=== PATIENT | male | born 1980 | race African-American/Black ===

== ENCOUNTER 2023-10-12 23:53 | Inpatient (IN) | payer OTHER ==
[2023-10-13 00:56] VITALS: BMI 29.6
[2023-10-13] MEDS ORDERED: guaiFENesin 600 MG TABLET.ER (FP) PO PRN (01:15)
[2023-10-13] MEDS ORDERED: ONDANSETRON *ODT* 4 MG TABLET SL PRN (01:15)
[2023-10-13] MEDS ORDERED: BISMUTH SUBSALICYLATE 524 MG/30 ML PO PRN (01:15)
[2023-10-13] MEDS ORDERED: BENZOCAINE/MENTHOL (CHLORASEPTIC ) LOZENGE MM PRN (01:15)
[2023-10-13] MEDS ORDERED: DICYCLOMINE HCL 10 MG CAPSULE PO PRN (01:15)
[2023-10-13] MEDS ORDERED: MAG HYDROX/AL HYDROX/SIMETH 30 ML UNIT-DOSE CUP PO PRN (01:15)
[2023-10-13] MEDS ORDERED: IBUPROFEN 400 MG TABLET (FP) PO PRN (01:15)
[2023-10-13] MEDS ORDERED: NALOXONE HCL (KLOXXADO) 8 MG SPRAY NS PRN (01:15)
[2023-10-13] MEDS ORDERED: LOPERAMIDE HCL 2 MG CAPSULE PO PRN (01:15)
[2023-10-13] MEDS ORDERED: NICOTINE POLACRILEX 2 MG LOZENGE BC PRN (01:15)
[2023-10-13] MEDS ORDERED: POLYETHYLENE GLYCOL (HEALTHYLAX) 3350 17 GM PACKET PO PRN (01:15)
[2023-10-13] MEDS ORDERED: MAGNESIUM HYDROX 2400MG/30ML ORAL SUSPENSION 30 ML CUP PO PRN (01:15)
[2023-10-13] MEDS ORDERED: NALOXONE HCL 0.4 MG/ML VIAL IM PRN (01:15)
[2023-10-13] MEDS ORDERED: BENZONATATE 200 MG CAPSULE PO PRN (01:15)
[2023-10-13] MEDS ORDERED: cloNIDine HCL 0.1 MG TABLET ONE (02:44)
[2023-10-13] MEDS ORDERED: IBUPROFEN 600 MG TABLET (FP) PO ONE (02:45)
[2023-10-13] MEDS: IBUPROFEN 600 MG TABLET (FP) PO PRN (02:48)
[2023-10-13] MEDS: cloNIDine HCL 0.1 MG TABLET PO PRN (02:48)
[2023-10-13] MEDS: methaDONE HCL 10 MG TABLET (FOR DETOX USE ONLY) PO ONE (05:27)
[2023-10-13] MEDS ORDERED: methaDONE HCL 10 MG TABLET (FOR DETOX USE ONLY) PO ONE (06:00)
[2023-10-13] MEDS: PRENATAL VITAMINS W/ FOLIC ACID TABLET (FP) PO SCH (10:32)
[2023-10-13] MEDS: ACETAMINOPHEN 325 MG TABLET (FP) PO PRN (10:33)
[2023-10-13] MEDS: NICOTINE 14 MG/24 HOURS TOPICAL PATCH TD SCH (10:34)
[2023-10-13 10:57] LABS: HEMATOCRIT 37.7 % (35.4-49); HEMOGLOBIN 12.9 GM/dL (11.7-16.9); MCH 31.9 pg (25.7-33.7); MCHC 34.2 g/dl (32.0-35.9); MEAN CELL VOLUME 93.3 fl (80-96); MEAN PLT VOLUME 8.6 fl (7.5-11.1); PLATELET COUNT 340 10^3/uL (134-434); RBC 4.04 M/mm3 (4.00-5.60); RDW 12.4 % (11.9-15.9); WHITE BLOOD COUNT 6.4 K/mm3 (4.0-10.0)
[2023-10-13 11:03] LABS: CHLORIDE 108 mmol/L (98-107); POTASSIUM 4.2 mmol/L (3.5-5.1); SODIUM 141 mmol/L (136-145)
[2023-10-13 11:06] LABS: CALCIUM 9.6 mg/dL (8.5-10.1)
[2023-10-13 11:07] LABS: ALBUMIN 3.7 g/dl (3.4-5.0); ANION GAP 4 mmol/L (4-13); CO2 29 mmol/L (21-32); GLUCOSE,RANDOM 117 mg/dL (74-106)
[2023-10-13 11:10] LABS: CREATININE 1.1 mg/dL (0.55-1.3); SGOT/AST 8 U/L (15-37); SGPT/ALT 22 U/L (13-61)
[2023-10-13 11:12] LABS: BILIRUBIN,TOTAL 0.6 mg/dL (0.2-1); TOT PROT 7.1 g/dl (6.4-8.2)
[2023-10-13 11:13] LABS: ALK PHOS 80 U/L (45-117)
[2023-10-13] MEDS: hydrOXYzine PAMOATE 25 MG CAPSULE (FP) PO PRN (15:48)
[2023-10-13] MEDS: METHOCARBAMOL 500 MG TABLET PO PRN (15:48)
[2023-10-13] MEDS: THIAMINE HCL 100 MG TABLET (FP) PO SCH (21:56)
[2023-10-13] MEDS: MELATONIN 5 MG TABLETS PO SCH (21:56)
[2023-10-14] MEDS: ALBUTEROL SO4 HFA INHALER IH SCH (10:22)
[2023-10-14] MEDS: diazePAM 5 MG TABLET PO PRN (10:34)
[2023-10-14] MEDS ORDERED: ALBUTEROL SO4 HFA INHALER IH PRN (12:46)
[2023-10-15] MEDS: methaDONE HCL 10 MG TABLET (FOR DETOX USE ONLY) PO ONE (09:52)
[2023-10-17] MEDS: methaDONE HCL 10 MG TABLET (FOR DETOX USE ONLY) PO ONE (10:10)
[2023-10-17 20:29] VITALS: RESP 18
[2023-10-18 08:51] VITALS: BP 104/74; PULSE 90; TEMP 97.7
== END 2023-10-18 10:23 | disposition home or self-care (01) | DRG 773 ==
LOC: YASAS 23:53 → Y3N 10-13 01:12
PROVIDERS: ADMIT Allergy & Immunology; ATTEND Allergy & Immunology
PROC: HZ2ZZZZ Detoxification Services for Substance Abuse Treatment (ICD-10-PCS; principal; 2023-10-13)
DX: F11.23 Opioid dependence with withdrawal (principal); F17.210 Nicotine dependence, cigarettes, uncomplicated; F19.280 Other psychoactive substance dependence with psychoactive substance-induced anxiety disorder; F19.282 Other psychoactive substance dependence with psychoactive substance-induced sleep disorder; F19.24 Other psychoactive substance dependence with psychoactive substance-induced mood disorder; J45.20 Mild intermittent asthma, uncomplicated
CPT/HCPCS: 36415; 71046-TC-FY; 80053; 80305; 80307; 85027; 86780; 87635; 87811; 93005; 93010